=== PATIENT | female | born 1990 | race Hispanic/Latino ===

== ENCOUNTER 2020-11-21 05:57 | Inpatient (IN) | payer MEDICAID, OTHER, SELFPAY ==
[2020-11-21] MEDS ORDERED: Acetaminophen 500 MG TAB PO PRN (06:12)
[2020-11-21] MEDS ORDERED: hydrALAZINE 20 MG/ML VIAL SLOW IVP PRN ×2 (06:12→11:29)
[2020-11-21] MEDS ORDERED: Ondansetron PF 4 MG/2 ML Vial IVP PRN ×2 (06:12→07:54)
[2020-11-21] MEDS ORDERED: Bicitra 30 ML UDCUP PO PRN (06:12)
[2020-11-21] MEDS ORDERED: Promethazine HCl 25 MG/ML VIAL IM PRN ×2 (06:12→07:54)
[2020-11-21] MEDS ORDERED: Famotidine/PF 20 mg/2ml Vial SLOW IVP PRN (06:12)
[2020-11-21] MEDS ORDERED: Lactated Ringer's 1,000 ML IV SCH (06:15)
[2020-11-21] MEDS ORDERED: CEFAZOLIN 2 GM in Premix Bag 1 BAG IVPB SCH (06:30)
--- NOTE | 2020-11-21 06:34 | PDOC.FPROB ---
FMR OB H&P: HPI - History of Present Illness Chief Complaint: RLTCS Indentification: 30 yo at 39.1 wga by 21.6 wk sono History of Present Illness: Patient presents for RLTCS with risk reducing salpingectomy. RRS approval on file. Denies ctx, LOF, VB, VD. +FM. Primary Care Physician: EMELYN Hamilton. FMR OB H&P: Current - Care : 6 Para: [id number] Gestational age: 39.1 Due date: 11/27/2020 Dating Criteria: 21.6 wk sono Course/Complications: Anemia of S<D, growths WNL - OB Labs Blood type: A RH: positive Antibody Screen: negative HIV: negative RPR: negative HepBsAg: negative Rubella: immune Gonorrhea: negative Chlamydia: negative Pap Smear: NILM GBS: negative H&H: 10.5/31.5 Additional labs: 2hr GTT: 72, 124, 77 Hep C neg FMR OB H&P: History - Past Medical History PMH: Hx seizures, last one 5 years ago. 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 - Surgical History Sx History: - Social History Social History: denies smoking, drinking, drugs. - Family History Family History: Maternal GM: breast cancer FMR OB H&P: Medications - Current Home Medications: Medication Instructions Recorded Confirmed Type Mv-Mn/Iron/FA/Herbal/Digestive 1 tab PO DAILY #30 tablet 04/03/17 11/21/20 Rx [ One Tablet] Vits96/Iron Fum/Folic 1 tab PO DAILY 11/21/20 11/21/20 History [ Tablet] Allergies/Adverse Reactions: Allergies Allergy/AdvReac Type Severity Reaction Status Date / Time No Known Allergies Allergy Verified 11/21/20 06:48 FMR OB H&P: ROS - Review of Systems General: denies: fever/chills, weight/appetite/sleep changes ENT: denies: nasal congestion, rhinorrhea Cardiovascular: denies: chest pain Respiratory: denies: cough Gastrointestinal: denies: abdominal pain, nausea, vomiting Genitourinary (Female): denies: dysuria, vaginal discharge, vaginal pain, vaginal bleeding, contractions Musculoskeletal: denies: pain Neurologic: denies: seizures, weakness Integumentary: denies: itching, rash Psychological: denies: depression, anxiety FMR OB H&P: Vital Signs - Maternal Vital signs: BP 101/64 HR 75 - Heart Tones Baseline: 150 (reactive) Variability: moderate Acceleration: present Deceleration: absent FMR OB H&P: Physical Exam - Physical Exam General: NAD, awake, alert and oriented HEENT: normocephalic and atraumatic, no scleral icterus, grossly normal vision, grossly normal hearing Neck: trachea midline Heart: RRR, normal S1/S2 General: CTAB, no respiratory distress Abdomen: soft, gravid Musculoskeletal: FROM in all four extremities, no atrophy Neurological: no focal deficit Skin: no rash Lymphatic: no unusual bruising or bleeding Psychiatric: intact recent and remote memory, normal mood and affect - Pelvic Exam Membranes: intact Presentation: cephalic by bedside sono, MVP 4 cm Estimated Weight: 6 lbs FMR OB H&P: A/P Disposition: admit to L&D for RLTCS w/ RRS. ELOS > 48H. Discussion: Date/Time: 11/21/20 0634 30 yo at 39.1 by 21.6 wk sono RLTCS w/ RRS - approval on file - grand multip - prior c/sx 1 Oligo: resolved, MVP 4 cm, approx LEÓN >6. Hx of seizures - anasthesia aware. Anemia of - H/H today 11.1, hemagram postop This H&P was discussed with Dr. Yuen, who agrees with the above documentation a nd plan. Signature: Julissa Pascual MD PGY2 Addendum - Attending - Attending Attestation Date/Time: 11/21/20 1411 I personally evaluated the patient and discussed the management with Dr. Mccormick. I agree with the History, Examination, Assessment and Plan documented above with any addition or exceptions noted below.
[2020-11-21] MEDS ORDERED: Morphine PF 10 MG/10 ML VIAL ONE (06:43)
[2020-11-21] MEDS ORDERED: PHENYLEPHRINE-NS 100 MCG/ML 10 ML SYRINGE ONE (06:43)
[2020-11-21] MEDS ORDERED: Oxytocin 10 UNITS/ML VIAL ONE ×2 (06:43→08:55)
[2020-11-21 06:46] VITALS: BMI 22.6
[2020-11-21 07:21] LABS: Hemoglobin 11.1 g/dL (12.0-16.0); Mean Corpuscular HGB CONC 33.2 g/dL (32.0-36.0); Mean Corpuscular Hemoglobin 27.5 pg (27.0-31.0); Mean Corpuscular Volume 82.6 fL (78.0-98.0); Mean Platelet Volume 7.9 fL (7.4-10.4); Platelet Count 255 thou/uL (130-400); RBC Distribution Width 13.6 % (11.5-14.5); Red Blood Cell (RBC) Count 4.03 mill/uL (4.20-5.40); White Blood Cell (WBC) Count 6.3 thou/uL (4.8-10.8)
[2020-11-21] MEDS ORDERED: Phenylephrine 40 MG/NS 250 ML 250 ML ONE (07:25)
[2020-11-21] MEDS ORDERED: L&D-Morphine 4 MG/ML VIAL SLOW IVP PRN (07:54)
[2020-11-21] MEDS ORDERED: HYDROmorphone 2 MG/ML VIAL SLOW IVP PRN (07:54)
[2020-11-21] MEDS ORDERED: Promethazine HCl 25 MG SUPP PR PRN (07:54)
[2020-11-21] MEDS ORDERED: Naloxone HCl 0.4 mg/ml Vial IV PRN (07:54)
[2020-11-21] MEDS ORDERED: diphenhydrAMINE 50 MG/ML VIAL IVP PRN (07:54)
[2020-11-21] MEDS ORDERED: Naloxone HCl 0.4 mg/ml Vial IVP PRN ×2 (07:54)
[2020-11-21] MEDS ORDERED: Ondansetron HCl/PF 4 MG/2 ML Vial IVP PRN (07:54)
[2020-11-21] MEDS ORDERED: Ketorolac Tromethamine 30 MG/ML VIAL IVP PRN (07:54)
[2020-11-21] MEDS ORDERED: Meperidine HCl/PF 25 MG/ML VIAL SLOW IVP PRN (07:54)
[2020-11-21] MEDS ORDERED: Ketorolac Tromethamine 30 MG/ML VIAL IVP SCH (08:00)
[2020-11-21] MEDS ORDERED: Communication Order-Pharmacy FS SCH (08:00)
[2020-11-21 08:08] LABS: HBSAg Index 0.16 S/CO (0-0.99); Hep B Surf Ag Non-Reactive S/CO (NonReactive); Syphilis Antibody Nonreactive (Nonreactive); Syphilis Antibody Index 0.02 S/CO (<1.00 Non-Reactive)
[2020-11-21] MEDS ORDERED: Midazolam HCl 2 mg/2 ml Vial ONE (08:54)
[2020-11-21] MEDS ORDERED: NS / Oxytocin 40 units/1000ml 1,000 ML IV SCH (11:29)
[2020-11-21] MEDS ORDERED: Lanolin Ointment 7 GM TUBE TOP PRN (11:29)
[2020-11-21] MEDS ORDERED: diphenhydrAMINE 25 MG CAP PO PRN (11:29)
[2020-11-21] MEDS ORDERED: Bisacodyl 10 MG SUPP PR PRN (11:29)
[2020-11-21] MEDS ORDERED: Acetaminophen 325 MG TAB PO PRN (11:29)
[2020-11-21] MEDS ORDERED: Misoprostol 200 MCG TAB PR PRN (11:29)
[2020-11-21] MEDS: Simethicone Chewable 80 MG TAB PO PRN ×2 (12:15→17:08)
--- NOTE | 2020-11-21 13:06 | OP ---
DATE OF PROCEDURE: 11/21/2020 PROCEDURE PERFORMED: Repeat low-transverse section with risk reducing salpingectomy. PRIMARY SURGEON: Julissa Pascual MD, PGY-2 SENIOR NET APPLICATION DEVELOPER: Iman Noble MD, PGY-1, Trey Yuen MD ATTENDING: Dr. Trey Yuen INTRAOPERATIVE CONSULTS: Dr. Bojorquez, PUBLIC INFORMATION COORDINATOR, for risk reducing salpingectomy PREOPERATIVE DIAGNOSES: 1. Term intrauterine . 2. Previous section X1. 3. Maternal grandmother with history of breast cancer. 4. Iron deficiency anemia of . 5. History of preeclampsia with previous . POSTOPERATIVE DIAGNOSES: 1. Term intrauterine , delivered. 2. Previous section X1. 3. Maternal grandmother with history of breast cancer. 4. Iron deficiency anemia of . 5. History of preeclampsia with previous . ANESTHESIA: Spinal. QUANTITATIVE BLOOD LOSS: 380 mL. SPECIMENS: 1. Cord blood collected for blood type. 2. Right fallopian tube. 3. Left fallopian tube. FINDINGS: Placenta intact with three-vessel cord noted. Viable male delivered at 08:11 with Apgars of 8 and 9. DRAINS: Banda to gravity draining clear urine. INDICATIONS: A 30-year-old, G6, P5-0-0-5, at 39.1 weeks gestational age, dated by a 21.6 week sono, who presents to Labor and Delivery for scheduled repeat low-transverse section with risk reducing salpingectomy. DESCRIPTION OF PROCEDURE: After risks, benefits, and alternatives were explained to the patient, she gave informed consent. Preoperative antibiotics included cefazolin 2 g IV. The patient was taken to the operating room, where spinal anesthesia was initiated. She was prepped and draped in the usual sterile fashion. A time-out was performed per protocol. A Pfannenstiel incision was made over the skin using a scalpel and carried down to the level of the fascia, which was sharply nicked on both sides of the midline. The fascial cuts were extended bilaterally with Bauer scissors. The superior and inferior portions of the fascia were elevated with Jonathan clamps. The rectus muscles were sharply and bluntly dissected free. The rectus muscles were dissected apart with hemostats and sharply in the midline. The peritoneum was entered bluntly and retracted manually. The uterus was free of adhesions to the abdominal wall. An Akin O retractor was placed. A low-transverse uterine incision was made, and the uterus was entered bluntly in the midline. Amniotomy was performed, and clear fluid was seen. The was noted to be in the vertex presentation and delivered easily by fundal pressure. No nuchal cord. Cord blood was collected for blood type. The infant was taken to the warmer. Mouth and nares were bulb suctioned. The placenta was delivered manually. The endometrium was curetted with a dry lap x1. The edges of the hysterotomy were clamped with ring forceps. The hysterotomy was closed with 1 Monocryl in a running locking fashion. Hemostasis was noted. It was at this time that Dr. Bojorquez was called for consult to perform the risk reducing salpingectomy. Dr. Bojorquez used 2-0 chromic ties after making window in the mesosalpinx with cautery to tie off portions of the tube. First the left tube was cut and then sent for pathology. Then, the right tube was cut and removed in the same fashion and sent for pathology. Hemostasis was achieved with 3-[address] Bojorquez then scrubbed out. We appreciate his assistance with the case. The Akin O retractor was removed, and the hysterotomy was again noted to be hemostatic. The peritoneum was closed using 3-0 chromic in a running nonlocking fashion. The fascia and rectus muscles were inspected, and all bleeders were cauterized. Good hemostasis was appreciated over the rectus muscles and underneath the fascia. The fascia was then closed using 1 PDS in a running nonlocking fashion with the exception of locking the first stitch at each corner. Due to the patient's thin body habitus, no subcutaneous sutures were required. The skin was approximated with jadyn. The patient tolerated the procedure well. All counts were correct. The patient then went to recovery for routine and postoperative cares. Job ID: [id number] [facility]
--- NOTE | 2020-11-21 14:56 | PDOC.BPN ---
- Brief Progress Note Encounter Date: 11/21/20 Encounter Time: 13:45 S: Pt reports some incisional pain but states she is feeling well. She is starting to get feeling back in her legs. She denies headache, dizziness, chest pain/palpitations, SOB/cough. O: VS: 97/59, P 65, 99% on RA, 98.5 Cardiac: RRR no murmur Lungs: BCTA Abdomen: +BS. Fundus firm and below umbilicus. Appropriately TTP. Lochia minimal. Ext: No edema, +posterior tibial pulses bilat A/P: 30 yo at 39.1 by 21.6 wk sono s/p rLTCS s/p RLTCS w/ RRS - stapled, with negative pressure dressing applied - vitals stable - QBL 491 - Pt has no complaints Hx of seizures Anemia of - Hgb 11.1 - plan for AM hemagrhood Hamilton MD PGY3
[2020-11-21] MEDS: Ibuprofen 600 MG TAB PO SCH ×2 (15:44→21:30)
[2020-11-21] MEDS ORDERED: HYDROcodone/Acetaminophen 5/325 mg Tablet PO PRN (21:00)
[2020-11-21] MEDS: Docusate Calcium (SURFAK) 240 MG CAP PO SCH (21:30)
[2020-11-21] MEDS: Ferrous Sulfate 325 MG TAB PO SCH (21:32)
[2020-11-22] MEDS: Ibuprofen 600 MG TAB PO SCH ×3 (05:30→20:00)
[2020-11-22] MEDS: HYDROcodone/Acetaminophen 5/325 mg Tablet PO PRN ×2 (06:26→16:56)
--- NOTE | 2020-11-22 06:53 | PDOC.PP ---
Post Progress Note Post Day #: 1 Subjective: Pain is well controlled. She does not want a circumcision She plans for baby to follow up at in [place]. She is bottle feeding. She has eaten and voided, still needs to pass gas. PO intake tolerated: yes Flatus: no Ambulation: yes Vital Signs (12 hours) Temp Pulse Resp BP Pulse Ox 11/22/20 05:30 98.0 F 71 15 97/54 L 11/22/20 00:00 98.8 F 73 15 96/57 L 11/21/20 19:26 98.3 F 83 16 116/59 L 97 Weight Weight 54.431 kg - Physical Examination General: NAD Cardiovascular: no m/r/g, RRR Respiratory: clear to auscultation bilaterally, non-labored breathing Abdominal: + bowel sounds, lochia (minimal), no distention, appropriately TTP Deviation from normal: pressure dressing over wound Neurological: no gross focal deficits Psychiatric: A&Ox3, normal affect Result Diagrams: 11/22/20 07:17 Additional Labs: Post Labs Hep Bs Antigen Non-Reactive S/CO (NonReactive) 11/21/20 07:02 Blood Type A POSITIVE 11/21/20 07:02 - Assessment/Plan 30 yo ->6 delivered at 39.1 by 21.6 wk sono by rLTCS on 11/21 @ 0811 PPD#1 RLTCS w/ RRS - QBL 519 - franklin removed - jadyn, with pressure dressing, remove dressing today. Will evaluated for staple removal tomorrow - pt eating drinking, ambulating. Awaiting flatus - Pain well controlled, continue ibuprofen and tylenol, norco if needed Hx of seizures - aware. Anemia of - H/H 11.1-> 9.5, vitals stable Likely DC tomorrow pending clinical course. Pt follows at [facility]. Cliff Hamilton MD PGY3 Addendum - Attending - Attending Attestation Date/Time: 11/22/20 7187 I personally evaluated the patient and discussed the management with Dr. Hamilton I agree with the History, Examination, Assessment and Plan documented above with any addition or exceptions noted below. 30 yo now female s/p RLTCS with RRS on 11/21/20 Patient doing well. Pain controlled. Minimal bleeding. Bandage still inplace. Clean and dry. Will remove in shower later this morning. Tolerating PO well. Voiding well. Ambulating well. Bottle feeding. QBL = 521 mL. CBL = 552 mL. Consistent. No concerns. Continue oral iron x 1 to 2 months. Continue to monitor overnight to make sure patient is meeting milestones. Monitor for preE and PPD. Codey
[2020-11-22 07:41] LABS: Hemoglobin 9.5 g/dL (12.0-16.0); Mean Corpuscular HGB CONC 32.5 g/dL (32.0-36.0); Mean Corpuscular Hemoglobin 26.6 pg (27.0-31.0); Mean Corpuscular Volume 81.9 fL (78.0-98.0); Mean Platelet Volume 7.8 fL (7.4-10.4); Platelet Count 238 thou/uL (130-400); RBC Distribution Width 13.7 % (11.5-14.5); Red Blood Cell (RBC) Count 3.57 mill/uL (4.20-5.40)
[2020-11-22] MEDS: Prenatal Vitamin 1 TAB PO SCH (10:19)
[2020-11-22] MEDS: Docusate Calcium (SURFAK) 240 MG CAP PO SCH ×2 (10:20→22:51)
[2020-11-22] MEDS: Ferrous Sulfate 325 MG TAB PO SCH ×2 (10:20→22:51)
[2020-11-22] MEDS ORDERED: Adacel (T-DAP) 0.5 ML SYRINGE IM ONE (11:29)
[2020-11-23] MEDS: Ibuprofen 600 MG TAB PO SCH (06:18)
[2020-11-23 06:23] VITALS: TEMP 98.1
--- NOTE | 2020-11-23 06:42 | PDOC.PP ---
Post Progress Note Post Day #: 2 Subjective: Feeling well, no concerns. Has voided, passed flatus, ambulated. Pain is well controlled. PO intake tolerated: yes Flatus: yes Ambulation: yes Vital Signs (12 hours) Temp Pulse Resp BP Pulse Ox 11/23/20 06:15 98.1 F 80 14 111/72 11/23/20 00:15 98.4 F 75 14 111/69 11/22/20 20:00 98.0 F 76 18 117/74 100 Weight Weight 54.431 kg - Physical Examination General: NAD Cardiovascular: no m/r/g, RRR Respiratory: clear to auscultation bilaterally, non-labored breathing Abdominal: + bowel sounds, no distention, appropriately TTP Deviation from normal: below umbilicus Skin: CS incision dry & intact Deviation from normal: mild erythema at edges of incision Psychiatric: A&Ox3, normal affect Result Diagrams: 11/22/20 07:17 Additional Labs: Post Labs Hep Bs Antigen Non-Reactive S/CO (NonReactive) 11/21/20 07:02 Blood Type A POSITIVE 11/21/20 07:02 - Assessment/Plan PPD#2 RLTCS w/ RRS - jaydn in place, some slight erythema at edges of incision. Showed patient and , discussed if it gets any worse or starts becoming more painful that she will need antibiotics for infection. - Pain well controlled, continue ibuprofen and tylenol Hx of seizures - aware. Anemia of -stable, continue Fe supplementation Dispo: DC to home today. Follow up at [facility] in 2-3 days for staple removal. Cliff Hamilton MD PGY3 Addendum - Attending - Attending Attestation Date/Time: 11/23/20 0915 I personally evaluated the patient and discussed the management with Dr. Hamilton I agree with the History, Examination, Assessment and Plan documented above with any addition or exceptions noted below. POD#2 Patient doing well. No concerns overnight. Noted to have pink skin changes in area surrounding incision. Jadyn in place. No pain/tenderness. No edema. No discharge. Does not appear to be cellulitis at this time. Possibly related to skin reaction to tape. Patient to monitor closely. Follow up outpatient in 3 days for staple removal. Codey
[2020-11-23] MEDS: Prenatal Vitamin 1 TAB PO SCH (08:52)
[2020-11-23] MEDS: Ferrous Sulfate 325 MG TAB PO SCH (08:52)
[2020-11-23] MEDS: Docusate Calcium (SURFAK) 240 MG CAP PO SCH (08:52)
[2020-11-23 10:37] VITALS: BP 114/68
--- NOTE | 2020-11-24 16:19 | OP ---
DATE OF PROCEDURE: 11/21/2020 INDICATIONS: The patient is a 30-year-old female, who was present for a scheduled repeat and a risk reducing salpingectomy. The primary team, Dr. Yuen and his team performed a . I was asked to come and perform the salpingectomy. For complete operative documentation, please refer to both operative notes. PREOPERATIVE DIAGNOSES: 1. Term intrauterine . 2. Previous section. 3. Maternal grandmother with history of breast cancer. 4. Iron-deficiency anemia. 5. History of preeclampsia, previous section. POSTOPERATIVE DIAGNOSES: 1. Term intrauterine . 2. Previous section. 3. Maternal grandmother with history of breast cancer. 4. Iron-deficiency anemia. 5. History of preeclampsia, previous section. Surgeon: JACKIE PINTO ANESTHESIA: Spinal. PROCEDURE: Bilateral salpingectomy. FACILITY COORDINATOR: Iman Noble MD COMPLICATIONS: None. QUANTITATIVE BLOOD LOSS: During this portion of the procedure, less than 25 mL. FINDINGS: Normal-appearing tubes and ovaries. DESCRIPTION OF PROCEDURE: I was called to the room once the delivery of the baby and hysterotomy closure was completed. The uterus was not externalized, but was visible through the use of an Akin O self-retaining retractor. Both tubes appeared to be normal and ovaries appeared to be normal. The patient's right tube was then elevated in the surgical field and as several defects were made in the mesosalpinx with care to avoid any major vascular structures to aid in ligation of the tube and larger vascular structures. With this portion completed, a 2-0 chromic was utilized to ligate these vascular structures and the tube from the uterine body and the tube was then excised. There was good hemostasis noted and the procedure was then repeated on the other tube. However, with removal of the other tube, there was some residual bleeding close to the isthmic portion of the tube and uterus. This was successfully made hemostatic with some 3-0 chromic on SH needle and once the left and right tube were completely excised from the uterus, the procedure was then returned back to the primary team. Job ID: [id number] MTDD
== END 2020-11-23 11:35 | disposition home or self-care (01) | DRG 785 ==
LOC: L&D 05:57 → 3SW 11:55 → 3SE 11-22 22:20
PROVIDERS: ADMIT Family Medicine; ATTEND Family Medicine
PROC: 10D00Z1 Extraction of Products of Conception, Low, Open Approach (ICD-10-PCS; principal; 2020-11-21)
PROC: 0UT70ZZ Resection of Bilateral Fallopian Tubes, Open Approach (ICD-10-PCS; 2020-11-21)
DX: O34.211 Maternal care for low transverse scar from previous cesarean delivery (principal); O99.02 Anemia complicating childbirth; D64.9 Anemia, unspecified; Z3A.39 39 weeks gestation of pregnancy; Z37.0 Single live birth
CPT/HCPCS: 36415; 51702; 85027; 86780; 86850; 86900; 86901; 87340; 88302; J0690; J1885; J2250; J2270

== ENCOUNTER 2024-11-29 23:01 | Observation (INO) | payer MEDICAID, SELFPAY ==
[2024-11-29 19:52] LABS: #Basophils 0.06 10x3/uL (0.0-0.2); %Basophils 0.3 % (0.0-1.0); %Eosinophils 0.5 % (0.0-10.0); %Neutrophils 82.7 % (42.0-75.0); Hematocrit 39.5 % (36.0-47.0); Hemoglobin 13.2 g/dL (12.0-16.0); Mean Corpuscular HGB CONC 33.4 g/dL (32.0-36.0); Mean Corpuscular Hemoglobin 29.8 pg (27.0-31.0); Mean Corpuscular Volume 89.2 fL (78.0-98.0); Mean Platelet Volume 10.1 fL (7.4-10.4); Platelet Count 320 10x3/uL (130-400); RBC Distribution Width 12.2 % (11.5-14.5); Red Blood Cell (RBC) Count 4.43 mill/uL (4.20-5.40)
[2024-11-29 20:17] LABS: ALT (SGPT) 9 U/L (Less than 34); AST (SGOT) 14 U/L (11-34); Albumin 4.1 g/dL (3.1-4.5); Alkaline Phosphatase 59 U/L (40-110); Anion Gap 13 mmol/L (10-20); BHCG - Serum Negative (NEGATIVE); BUN (Urea Nitrogen) 8 mg/dL (7.0-18.7); Bilirubin, Total 0.5 mg/dL (0.3-1.2); Calc. Creatinine Clearance 0 mL/min (70-130); Calcium 9.3 mg/dL (7.8-10.44); Carbon Dioxide 20 mmol/L (22-29); Chloride 106 mmol/L (98-107); Estimated GFR 124; Globulin 3.7 g/dL (2.4-3.5); Glucose 99 mg/dL (70-105); Lipase 15 U/L (8-78); Potassium 4.6 mmol/L (3.5-5.1); Pregs Control Background? CLEAR/WHITE (CLR/WHITE); Pregs Control Bar Appear? YES (CONTROL BAR); Protein, Total 7.8 g/dL (6.0-8.3); Sodium 134 mmol/L (136-145)
[2024-11-29] MEDS ORDERED: Morphine 4 MG/ML VIAL ONE (23:59)
[2024-11-29] MEDS ORDERED: Ondansetron PF 4 MG/2 ML Vial ONE (23:59)
[2024-11-30] MEDS ORDERED: Piperacillin/Tazobactam 3.375 GM VIAL ONE (00:04)
[2024-11-30] MEDS ORDERED: Sodium Chloride 0.9% 100 ML ONE (00:04)
[2024-11-30] MEDS ORDERED: Acetaminophen 325 MG TAB PO PRN (00:11)
[2024-11-30] MEDS ORDERED: hydrALAZINE 20 MG/ML VIAL SLOW IVP PRN (00:11)
[2024-11-30] MEDS ORDERED: Glucagon 1 MG/ML KIT IM PRN (00:11)
[2024-11-30] MEDS ORDERED: Promethazine HCl 25 MG/ML VIAL IM PRN (00:11)
[2024-11-30] MEDS ORDERED: Dextrose 5% in Water 1,000 ML IV PRN (00:11)
[2024-11-30] MEDS ORDERED: Ondansetron PF 4 MG/2 ML Vial IVP PRN (00:11)
[2024-11-30] MEDS ORDERED: Ipratropium/Albuterol 3 ML NEB NEB PRN (00:11)
[2024-11-30] MEDS ORDERED: Mag-Al 1200 mg/1200 mg/30 ML UDCUP PO PRN (00:11)
[2024-11-30] MEDS ORDERED: Dextrose 50% Abboject 50 ML SYRINGE SLOW IVP PRN (00:11)
[2024-11-30] MEDS: Morphine 2 MG/ML VIAL SLOW IVP PRN (02:53)
[2024-11-30] MEDS: Piperacillin/Tazobactam 3.375 GM in Sodium Chloride 0.9% 100 ML IVPB SCH (03:02)
[2024-11-30] MEDS: Lactated Ringer's 1,000 ML IV SCH (03:05)
[2024-11-30 03:24] VITALS: BMI 19.8
[2024-11-30] MEDS: HYDROcodone/Acetaminophen 5/325 mg Tablet PO PRN (04:49)
[2024-11-30 05:18] LABS: #Basophils 0.06 10x3/uL (0.0-0.2); #Eosinophils Less than 0.03 10x3/uL (0.0-0.7); %Basophils 0.4 % (0.0-1.0); %Eosinophils 0.1 % (0.0-10.0); %Lymphocytes 13.3 % (21.0-51.0); %Monocytes 8.2 % (0.0-10.0); %Neutrophils 77.5 % (42.0-75.0); Hematocrit 42.8 % (36.0-47.0); Hemoglobin 13.6 g/dL (12.0-16.0); Mean Corpuscular HGB CONC 31.8 g/dL (32.0-36.0); Mean Corpuscular Hemoglobin 29.7 pg (27.0-31.0); Mean Corpuscular Volume 93.4 fL (78.0-98.0); Mean Platelet Volume 10.8 fL (7.4-10.4); Platelet Count 122 10x3/uL (130-400); RBC Distribution Width 12.4 % (11.5-14.5); Red Blood Cell (RBC) Count 4.58 mill/uL (4.20-5.40)
[2024-11-30] MEDS ORDERED: PROPOFOL 40 ML ONE (07:14)
[2024-11-30] MEDS ORDERED: fentaNYL PF 100 MCG/2 ML SYRINGE ONE ×2 (07:14→09:35)
[2024-11-30] MEDS ORDERED: Rocuronium Bromide 10 MG/ML (10ML VIAL) ONE (07:16)
[2024-11-30] MEDS ORDERED: Midazolam HCl 2 mg/2 ml Vial ONE (07:17)
[2024-11-30] MEDS ORDERED: EPINEPHrine 1 MG/ML VIAL ONE (07:51)
[2024-11-30] MEDS ORDERED: Bupivacaine 0.25% HCL 30 ML VIAL ONE (07:51)
[2024-11-30] MEDS ORDERED: PHENYLEPHRINE-NS 100 MCG/ML 10 ML SYRINGE ONE (08:35)
[2024-11-30] MEDS ORDERED: ePHEDrine Sulfate 50 MG/10 ML VIAL ONE (08:37)
[2024-11-30] MEDS ORDERED: Ondansetron PF 4 MG/2 ML Vial ONE (08:37)
[2024-11-30] MEDS ORDERED: Dexamethasone 20 MG/5 ML VIAL ONE (08:37)
[2024-11-30] MEDS ORDERED: SUGAMMADEX SODIUM 200 MG/2 ML VIAL ONE (09:02)
[2024-11-30] MEDS ORDERED: Lidocaine 2% PF 5 ML VIAL ONE (09:34)
[2024-11-30] MEDS ORDERED: HYDROmorphone 2 MG/ML VIAL ONE (09:36)
[2024-11-30] MEDS ORDERED: Ketorolac Tromethamine 30 MG (1 mL) VIAL ONE (09:38)
[2024-11-30 12:53] LABS: Chloride 106 mmol/L (98-107); Potassium 3.4 mmol/L (3.5-5.1); Sodium 136 mmol/L (136-145)
[2024-11-30 12:54] LABS: Albumin 3.4 g/dL (3.1-4.5); Calcium 8.1 mg/dL (7.8-10.44); Glucose 92 mg/dL (70-105)
[2024-11-30 12:55] LABS: Protein, Total 6.4 g/dL (6.0-8.3)
[2024-11-30 12:56] LABS: Anion Gap 15 mmol/L (10-20); Carbon Dioxide 18 mmol/L (22-29)
[2024-11-30 12:57] LABS: Alkaline Phosphatase 54 U/L (40-110)
[2024-11-30 12:58] LABS: BUN (Urea Nitrogen) 6 mg/dL (7.0-18.7); Calc. Creatinine Clearance 99 mL/min (70-130); Estimated GFR 123
[2024-11-30 13:00] LABS: ALT (SGPT) 23 U/L (Less than 34); AST (SGOT) 39 U/L (11-34)
[2024-11-30 14:24] LABS: Bilirubin, Total 1.3 mg/dL (0.3-1.2)
[2024-11-30] MEDS: Acetaminophen/Codeine 30-300mg Tablet PO PRN (15:41)
[2024-12-01 07:38] VITALS: BP 118/68; TEMP 98.1
== END 2024-11-30 20:50 | disposition home or self-care (01) ==
LOC: ERS 23:01 → SURG B 11-30 00:11
PROVIDERS: ADMIT Surgery; ATTEND Surgery
PROC: 0FT44ZZ Resection of Gallbladder, Percutaneous Endoscopic Approach (ICD-10-PCS; principal; 2024-11-30)
DX: K80.12 Calculus of gallbladder with acute and chronic cholecystitis without obstruction (principal); K82.1 Hydrops of gallbladder; R59.9 Enlarged lymph nodes, unspecified; F12.90 Cannabis use, unspecified, uncomplicated; Z79.899 Other long term (current) drug therapy
CPT/HCPCS: 36415; 76705; 80053; 83690; 84703; 85025; 88304; 96374; 96375; 96376; C1889; G0378; J0171; J0665; J1100; J1171; J1885; J2250; J2270; J2272; J2405; J2543; J2704

== ENCOUNTER 2025-10-17 22:11 | Emergency (ER) | payer SELFPAY ==
[2025-10-18] MEDS ORDERED: Ondansetron PF 4 MG/2 ML Vial ONE (01:01)
[2025-10-18] MEDS ORDERED: CEFAZOLIN 2 GM VIAL ONE (01:01)
[2025-10-18 01:17] LABS: BHCG - Serum Negative (NEGATIVE); Pregs Control Background? CLEAR/WHITE (CLR/WHITE); Pregs Control Bar Appear? YES (CONTROL BAR)
[2025-10-18 01:27] LABS: Anion Gap 14 mmol/L (10-20); BUN (Urea Nitrogen) 9 mg/dL (7.0-18.7); Bilirubin, Total 0.2 mg/dL (0.3-1.2); Calc. Creatinine Clearance 0 mL/min (70-130); Calcium 8.8 mg/dL (7.6-10.4); Carbon Dioxide 20 mmol/L (22-29); Chloride 109 mmol/L (98-107); Glucose 94 mg/dL (70-105); Potassium 3.4 mmol/L (3.5-5.1); Sodium 140 mmol/L (136-145)
[2025-10-18 01:28] LABS: ALT (SGPT) 8 U/L (Less than 34); AST (SGOT) 20 U/L (11-34); Albumin 4.2 g/dL (3.1-4.5); Alkaline Phosphatase 56 U/L (40-110); Globulin 2.9 g/dL (2.4-3.5)
[2025-10-18 04:26] LABS: #Basophils 0.05 10x3/uL (0.0-0.2); #Eosinophils 0.03 10x3/uL (0.0-0.7); #Monocytes 0.84 10x3/uL (0.11-0.59); #Neutrophils 9.36 10x3/uL (1.40-6.50); %Basophils 0.4 % (0.0-1.0); %Eosinophils 0.2 % (0.0-10.0); %Lymphocytes 17.2 % (21.0-51.0); %Monocytes 6.7 % (0.0-10.0); %Neutrophils 75.2 % (42.0-75.0); Hematocrit 38.7 % (36.0-47.0); Hemoglobin 13.0 g/dL (12.0-16.0); Mean Corpuscular Hemoglobin 28.8 pg (27.0-31.0); Mean Corpuscular Volume 85.8 fL (78.0-98.0); Platelet Count 272 10x3/uL (130-400); Red Blood Cell (RBC) Count 4.51 mill/uL (4.20-5.40); White Blood Cell (WBC) Count 12.47 10x3/uL (4.8-10.8)
== END 2025-10-18 04:27 | disposition home or self-care (01) ==
LOC: EEVIPCON 22:11 → ERS 22:11
DX: S61.251A Open bite of left index finger without damage to nail, initial encounter (principal); S41.052A Open bite of left shoulder, initial encounter; S61.253A Open bite of left middle finger without damage to nail, initial encounter; S00.83XA Contusion of other part of head, initial encounter; Z23 Encounter for immunization; Z55.6 Problems related to health literacy; Y04.1XXA Assault by human bite, initial encounter
CPT/HCPCS: 70450; 70486; 72125; 80053; 84703; 85025; 90471; 90715; 96374; 96375; J2270; J2405